=== PATIENT | male | born 1935 | race Caucasian/White ===

== ENCOUNTER → 2016-05-23 | Outpatient (CLI) | payer MEDICARE, BC ==
[~2016-05-23] MED LIST: ASPIRIN 32325 MG/TAB PO; ATENOLOL25 MG PO; ATORVASTATIN PO; ATOXIMETIN-B1 CAP PO; CARDI-OMEGA1000 MG PO; CIPRO 500MG TA500 MG PO; CLONIDINE0.1 MG PO; CLOPIDOGREL PO; COZAAR 25MG25 MG/TAB PO; DESYREL 50MG50 MG PO; DIOVAN80 MG PO; FLAGYL500 MG PO; FLOMAX0.4 MG PO; HYGROTON 2525 MG/TAB PO; IMDUR60 MG PO; LAMICTAL XR200 MG PO; LIPITOR20 MG PO; MOBIC 7.5MG7.5 MG PO; MOBIC7.5 M1 PO; MULTI VITAMINS1 TAB PO; NATURE'S BLEND400 IU PO; NEXIUM 40MG40 MG PO; NEXIUM40 MG PO; NORCO 325 MG-51 TAB PO; PAXIL30 MG PO; PROVIGIL200 MG PO; SEROQUEL 200MG200 MG PO; TOPROL XL 50MG50 MG PO; ULTRAM 50MG TAB50 MG; VITAMIN E1000 U/CAP PO; ZETIA 10MG TAB10 MG PO
== END ==
LOC: BHSO 13:54
DX: F31.74 Bipolar disorder, in full remission, most recent episode manic (principal)

== ENCOUNTER → 2016-07-08 | Emergency (ER) | payer MEDICARE, BC ==
[~2016-07-08] VITALS: Ht 177.8 cm; Wt 75.9 kg
[2016-07-08 14:48] VITALS: TEMP 98.1
[2016-07-08 16:27] LABS: ANION GAP 11 mmol/L (7-16); BLOOD UREA NITROGEN 17 mg/dL (9-20); CALCIUM 9.7 mg/dL (8.4-10.2); CARBON DIOXIDE 29 mmol/L (22-30); CHLORIDE 101 mmol/L (98-107); GLUCOSE 89 mg/dL (74-106); POTASSIUM 3.8 mmol/L (3.4-5.0); SODIUM 140 mmol/L (137-145)
[2016-07-08 16:28] LABS: BASO # 0.1 (0.0-0.2); BASO % 1.3 % (0.0-2.0); EOS # 0.1 (0.0-0.7); EOS % 1.8 % (0-4.0); GRAN % 53.8 % (42.2-75.2); HEMATOCRIT 41.3 % (42.0-52.0); HEMOGLOBIN 14.1 g/dl (13.5-18.0); LYMPH # 1.9 (1.2-3.4); LYMPH % 33.6 % (20.0-51.0); MEAN CELL VOLUME 94 fl (80.0-100.0); MEAN CORPUSCULAR HEMOGLOBIN 32 pg (27.0-31.0); MEAN CORPUSCULAR HGB CONC 34 g/dl (33.0-37.0); MEAN PLATELET VOLUME 9.5 fl (7.4-10.4); MONO # 0.5 (0.1-0.6); MONO % 9.3 % (1.7-9.3); PLATELET COUNT 205 K/mm3 (130-400); RED BLOOD COUNT 4.39 M/mm3 (4.20-5.60); REDCELL DISTRIBUTION WIDTH-CV 12.5 % (11.5-14.5); WHITE BLOOD COUNT 5.6 K/mm3 (4.8-10.8)
[2016-07-08 16:40] LABS: TROPONIN-I < 0.012 ng/mL (0.000-0.034)
[2016-07-08 17:16] VITALS: BP 159/84; PULSE 98
== END | disposition home or self-care (01) ==
LOC: COL.ER 14:35
PROVIDERS: Emergency Medicine
DX: R00.0 Tachycardia, unspecified (principal); I25.10 Atherosclerotic heart disease of native coronary artery without angina pectoris; Z95.5 Presence of coronary angioplasty implant and graft; Z45.018 Encounter for adjustment and management of other part of cardiac pacemaker

== ENCOUNTER → 2016-11-19 | Outpatient (CLI) | payer MEDICARE, BC | LOC: BHSO 10:48 | DX: F31.73 Bipolar disorder, in partial remission, most recent episode manic (principal) ==

== ENCOUNTER → 2017-06-28 | Outpatient (CLI) | payer MEDICARE, BC | LOC: BHSO 14:09 | DX: F31.81 Bipolar II disorder (principal) | CPT/HCPCS: G0463 ==

== ENCOUNTER → 2017-12-31 | Outpatient (CLI) | payer MEDICARE, BC | LOC: BHSO 10:36 | DX: F31.81 Bipolar II disorder (principal) | CPT/HCPCS: G0463 ==

== ENCOUNTER → 2018-06-12 | Outpatient (CLI) | payer MEDICARE, BC | LOC: COL.RAD 08:43 | DX: C61 Malignant neoplasm of prostate (principal); M19.012 Primary osteoarthritis, left shoulder; M19.011 Primary osteoarthritis, right shoulder; M19.032 Primary osteoarthritis, left wrist; M19.031 Primary osteoarthritis, right wrist | CPT/HCPCS: A9503 ==

== ENCOUNTER → 2018-07-02 | Outpatient (CLI) | payer MEDICARE, BC | LOC: BHSO 08:35 | DX: F31.81 Bipolar II disorder (principal) | CPT/HCPCS: G0463 ==

== ENCOUNTER 2018-07-15 09:21 | Day surgery (SDC) | payer MEDICARE, BC ==
[~2018-07-15] VITALS: Ht 162.9 cm; Wt 74.0 kg
[2018-07-15 10:10] VITALS: BP 155/75; PULSE 70; TEMP 9732
[2018-07-15 14:15] VITALS: BP 143/70; PULSE 70; TEMP 97.4
--- NOTE | 2018-07-15 14:26 | NUR ---
RETURNS FROM PACU VIA CART TO BAY 2. WILL AWAKE TO NAME AND SPEAK. SLEEPY. AT BEDSIDE. VS STARTED. CALL LIGHT IN REACH. WILL CONTINUE TO MONITOR.
[2018-07-15 14:30] VITALS: BP 124/61; PULSE 66
--- NOTE | 2018-07-15 14:30 | NUR ---
ASKED FOR MUFFIN AND JUICE. AT BEDSIDE, CALL LIGHT IN REACH.
[2018-07-15] MEDS ORDERED: NORCO 325 MG-51 TAB PO (14:33)
[2018-07-15] MEDS ORDERED: SENOKOT S 50 MG1 TAB PO (14:35)
[2018-07-15 14:45] VITALS: BP 126/70; PULSE 68
[2018-07-15 15:30] VITALS: BP 128/64; PULSE 66; TEMP 98.2
--- NOTE | 2018-07-15 15:45 | NUR ---
PATIENT AMBULATED TO BATHROOM. DISCHARGE INSTRUCTIONS GIVEN TO PATIENT AND . PRESCRIPTIONS GIVEN AND FOLLOW UP APPT CARD GIVEN. VERBALIZED UNDERSTANDING. ESCORTED TO PERSONAL VEHICHLE VIA WHEELCHAIR.
== END 2018-07-15 15:45 | disposition home or self-care (01) ==
LOC: SDCO 09:21
DX: N20.1 Calculus of ureter (principal); Z85.46 Personal history of malignant neoplasm of prostate; Z95.1 Presence of aortocoronary bypass graft; Z90.49 Acquired absence of other specified parts of digestive tract; Z79.82 Long term (current) use of aspirin; I25.2 Old myocardial infarction; I25.10 Atherosclerotic heart disease of native coronary artery without angina pectoris; Z95.0 Presence of cardiac pacemaker; I10 Essential (primary) hypertension; G47.33 Obstructive sleep apnea (adult) (pediatric); K21.9 Gastro-esophageal reflux disease without esophagitis; G89.29 Other chronic pain; F31.9 Bipolar disorder, unspecified; N40.0 Benign prostatic hyperplasia without lower urinary tract symptoms
CPT/HCPCS: C1758; C1769; C2617; J0690; J1100; J1170; J1885; J2405; J2704; J3010; J7120; Q9967